=== PATIENT | female | born 1980 | race Caucasian/White ===

== ENCOUNTER 2021-06-02 13:22 | Emergency (ER) | payer MEDICAID, SELFPAY ==
--- NOTE | ~2021-06-02 | XR_ITS ---
EXAMINATION: XR chest 1V portable DATE: 06/02/2021 13:58 INDICATION: Tachycardia TECHNIQUE: frontal view of the chest was obtained. COMPARISON: None FINDINGS: The lungs are clear with no focal airspace opacities, pulmonary edema, pleural effusion or pneumothor ax. The cardiomediastinal silhouette is normal. Peripheral IV projects over the right shoulder. Minim al thoracic dextrocurvature. IMPRESSION: 1. No acute cardiopulmonary disease. Reviewed, dictated and finalized at location A.
--- NOTE | 2021-06-02 13:43 | ECG_ITS ---
Measurements Intervals [place] Rate: 114 P: 65 VT: 116 QRS: 67 QRSD: 78 T: 42 QT: 350 QTc: 483 Interpretive Statements SINUS TACHYCARDIA WITH SHORT VT INTERVAL ABNORMAL ECG Electronically Signed On 06-02-2021 20:00:44 CDT by Reuben Gary D.O.
[2021-06-02 13:46] VITALS: BP 160/113; PULSE 136; RESP 17; TEMP 36.8; O2SAT 97
[2021-06-02 14:13] LABS: Basophils Absolute Auto 0.1 K/mm3 (0.0-0.1); Basophils Percent Auto 0.5 % (0.2-1.2); Eosinophils Absolute Auto 0.1 K/mm3 (0-0.3); Eosinophils Percent Auto 0.3 % (0-4.4); Hematocrit 46.3 % (37.0-47.0); Hemoglobin 14.3 g/dL (12.0-15.0); Immature Granulocyte Percent A 0.5 % (0-0.5); Lymphocytes Absolute Auto 4.19 K/mm3 (0.9-3.2); Mean Corpuscular HGB Conc 30.9 g/dl (32-36); Mean Corpuscular Hemoglobin 24.6 pg (26-34); Mean Corpuscular Volume 79.7 fl (80-100); Mean Platelet Volume 10.3 fl (7.4-10.4); Monocytes Absolute Auto 0.9 K/mm3 (0.1-0.6); Monocytes Percent Auto 4.6 % (2.6-8.5); Neutrophils Absolute Auto 13.7 K/mm3 (1.3-6.7); Neutrophils Percent Auto 72.1 % (45.5-73.1); Platelet Count Result 496 k/mm3 (150-375); Red Blood Count 5.81 M/mm3 (4.2-5.4); Red Cell Distribution Width 20.8 % (11.5-14.5); White Blood Count 19.1 K/mm3 (4.5-10.0)
[2021-06-02 14:23] LABS: Anion Gap 18 mmol/L (8-16); Blood Urea Nitrogen 18 mg/dL (7-17); Calcium 10.5 mg/dL (8.4-10.2); Carbon Dioxide 21 mmol/L (22-30); Chloride 104 mmol/L (98-107); Estimated CRCL calculation 73 ml/min; Estimated Glomerular Filt Rate > 60; Glucose 139 mg/dL (65-110); Potassium 3.4 mmol/L (3.4-5.0); Sodium 143 mmol/L (137-145)
[2021-06-02 14:26] LABS: Amphetamine Screen Urine Negative (Negative); Barbiturate Screen Urine Negative (Negative); Benzodiazepines Screen Urine Negative (Negative); Cannabinoid Screen Urine Positive (Negative); Cocaine Screen Urine Negative (Negative); Methadone Screen Urine Negative (Negative); Opiate Screen Urine Negative (Negative); Phencyclidine Screen Urine Negative (Negative)
[2021-06-02] MEDS: SODIUM CHLORIDE 0.9% IV 1,000 ML 999 ML IV CONT (15:05)
[2021-06-02] MEDS: THIAMINE HCL 200 MG/2 ML VIAL 100 MG IV PUSH (15:06)
--- NOTE | 2021-06-02 15:07 | PC.NURSE ---
Spoke to Patricia in lab at 15:06 to add on CMP
[2021-06-02] MEDS: LORazepam INJ (*CRX) 2 MG/ML VIAL 1 MG IV PUSH (15:08)
[2021-06-02 15:14] LABS: Alanine Aminotransferase 30 U/L (4-35); Albumin Level 4.5 g/dL (3.5-5.1); Alkaline Phosphatase 142 U/L (38-126); Anion Gap 17 mmol/L (8-16); Aspartate Amino Transferase 43 U/L (14-36); Bilirubin,Total 0.4 mg/dL (0.2-1.3); Blood Urea Nitrogen 18 mg/dL (7-17); Calcium 10.5 mg/dL (8.4-10.2); Carbon Dioxide 21 mmol/L (22-30); Chloride 105 mmol/L (98-107); Estimated CRCL calculation 73 ml/min; Estimated Glomerular Filt Rate > 60; Glucose 138 mg/dL (65-110); Potassium 3.4 mmol/L (3.4-5.0); Sodium 143 mmol/L (137-145)
[2021-06-02 15:30] VITALS: BP 152/85; PULSE 72; RESP 18; O2SAT 100
--- NOTE | 2021-06-02 17:19 | ED.GENADULT ---
HPI - General Adult General Chief complaint: Unspecified Stated complaint: withdrawls from fentanyl Time Seen by Provider: 06/02/21 13:32 Source: patient Mode of arrival: ambulatory Limitations: no limitations History of Present Illness HPI narrative: Patient with history of substance abuse and hepatitis C presents with chief complaint of craving fentanyl. Patient states that she has not used fentanyl since and she is very anxious and agitated as she would like to use. Patient states that she also smokes marijuana. Patient reports feeling very anxious and as if she is going to crawl out of her skin. Patient denies fever, chills, nausea, vomiting, chest pain, shortness of breath. Related Data Allergies Allergy/AdvReac Type Severity Reaction Status Date / Time erythromycin base Allergy Mild Verified 09/26/17 23:23 Review of Systems Review of Systems: CONSTITUTIONAL: Denies fever, chills, or sweats. EYES: Denies visual changes, redness, or discharge. ENT: Denies rhinorrhea, congestion, sore throat, or otalgia. CARDIOVASCULAR: Denies chest pain, palpitations, or edema. RESPIRATORY: Denies cough or dyspnea. GASTROINTESTINAL: Denies abdominal pain, nausea, vomiting, or diarrhea. GENITOURINARY: Denies dysuria or hematuria. SKIN: Denies rash or itching. MUSCULOSKELETAL: Denies back pain, joint pain, or myalgia. NEUROLOGIC: Denies headache, numbness, dizziness, or weakness. PSYCHIATRIC: Reports anxiety and drug abuse Exam Narrative: GENERAL: Unkempt appearance, thin. HEAD: Normocephalic, atraumatic. EYES: PERRLA and EOMI. ENT: Nares clear, no rhinorrhea or epistaxis. Mucous membranes moist. NECK: Supple. No adenopathy or masses. CHEST: Clear to auscultation. No respiratory distress. No wheezes rales or rhonchi HEART: Tachycardic rate and regular rhythm. ABDOMEN: Soft, nontender, nondistended, normal active bowel sounds. EXTREMITIES: Normal range of motion. No edema. SKIN: Injection scabs noted on patient's extremities. Some with yellow crusting. No signs of abscess presently. Warm, dry, no rash. NEURO: No focal deficits. Alert and oriented x3. PSYCH: Anxious mood and affect Course Vital Signs Vital signs: Vital Signs Temperature 98.2 F 06/02/21 13:46 Pulse Rate 136 H 06/02/21 13:46 Respiratory Rate 17 06/02/21 13:46 Blood Pressure 160/113 H 06/02/21 13:46 Pulse Oximetry 97 06/02/21 13:46 Temperature 98.2 F 06/02/21 13:46 Pulse Rate 72 06/02/21 15:30 Respiratory Rate 18 06/02/21 15:30 Blood Pressure 152/85 H 06/02/21 15:30 Pulse Oximetry 100 06/02/21 15:30 Medical Decision Making MDM Narrative Medical decision making narrative: Patient has received IV fluids and Ativan. Patient has been resting comfortably in her room. Patient's vital signs have improved and is 152/85 pulse of 72. Patient has not been hypoxic or febrile. Patient will be discharged and given resources for substance abuse programs. Patient will be prescribed Bactrim for areas of cellulitis to cover MRSA which is likely due to her history. Patient has been instructed to return to emergency department if she has any emergent symptoms. Vital Signs Vital Signs: Vital Signs Temperature 98.2 F 06/02/21 13:46 Pulse Rate 136 H 06/02/21 13:46 Respiratory Rate 17 06/02/21 13:46 Blood Pressure 160/113 H 06/02/21 13:46 Pulse Oximetry 97 06/02/21 13:46 Temperature 98.2 F 06/02/21 13:46 Pulse Rate 72 06/02/21 15:30 Respiratory Rate 18 06/02/21 15:30 Blood Pressure 152/85 H 06/02/21 15:30 Pulse Oximetry 100 06/02/21 15:30 Lab Data Result diagrams: 06/02/21 14:00 06/02/21 14:00 Labs: Lab Results 06/02/21 06/02/21 06/02/21 Range/Units 14:00 14:00 14:00 WBC 19.1 H (4.5-10.0) K/mm3 RBC 5.81 H (4.2-5.4) M/mm3 Hgb 14.3 (12.0-15.0) g/dL Hct 46.3 (37.0-47.0) % MCV 79.7 L (80-100) fl MCH 24.6 L (26-34) pg MCHC 3
--- NOTE | 2021-06-13 10:51 | PC.NURSE ---
Pt recieved 1000 ml of Normal Saline that was completed at 1343
== END 2021-06-02 17:55 | disposition home or self-care (01) ==
PROVIDERS: Physician Assistant; Emergency Provider Emergency Medicine
DX: F11.10 Opioid abuse, uncomplicated (principal); L03.90 Cellulitis, unspecified; Z86.19 Personal history of other infectious and parasitic diseases
CPT/HCPCS: 36415; 71045; 80048; 80053; 80307; 81025; 85025; 93005; 96361; 96374; 96375; 99284; J2060; J3411; J7030